=== PATIENT | female | born 1990 ===

== ENCOUNTER 2017-03-07 22:27 | Emergency (ER) | payer OTHER ==
--- NOTE | 2017-03-07 22:34 | PDOC ---
History of Present Illness - General Chief Complaint: Pain Stated Complaint: PAIN TO RT THUMB Time Seen by Provider: 03/07/17 22:28 History Source: Patient Exam Limitations: No Limitations - History of Present Illness Initial Comments: 03/07/17 22:29 27 yo healthy female had new fake nails placed monday morning and monday night she had an accident at work and avulsed the thumbnail on her right hand.... 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 Isolated injury no other complaints. Timing/Duration: other (4 days ago) Severity: moderate Modifying Factors: improves with: other (nothing) Associated Symptoms: denies: denies symptoms Past History - Past Medical History Allergies/Adverse Reactions: Allergies Allergy/AdvReac Type Severity Reaction Status Date / Time No Known Allergies Allergy Verified 03/07/17 22:28 Home Medications: Ambulatory Orders Clindamycin [Cleocin -] 300 mg PO TID #30 capsule 03/07/17 Ondansetron [Zofran *Odt*] 8 mg SL TID #15 od.tablet 03/07/17 Oxycodone HCl/Acetaminophen [Percocet 5-325 mg Tablet] 1 - 2 tab PO Q6H #20 tab MDD 6 03/07/17 Oxycodone HCl/Acetaminophen [Percocet 5-325 mg Tablet] 1 - 2 tab PO Q6H #20 tab MDD 6 03/07/17 Review of Systems - Review of Systems Able to Perform ROS?: Yes Is the patient limited Qatari proficient: No Constitutional: No: Symptoms Reported HEENTM: No: Symptoms Reported Respiratory: No: Symptoms reported Cardiac (ROS): No: Symptoms Reported ABD/GI: No: Symptoms Reported : No: Symptoms Reported Musculoskeletal: No: Symptoms Reported Integumentary: Yes: See HPI Neurological: No: Symptoms reported Psychiatric: No: Anxiety, Depression Endocrine: No: Symptoms Reported Hematologic/Lymphatic: No: Symptoms Reported All Other Systems: Reviewed and Negative *Physical Exam - Physical Exam Comments: 03/07/17 22:32 Paronechiae and hemorrage at ulnar side of right thumbnail/nailbed General Appearance: Yes: Nourished HEENT: positive: Normal ENT Inspection Neck: positive: Supple Extremity: positive: Normal Capillary Refill, Other (Right Thumbnail / nailbed paronechiae) *DC/Admit/Observation/Transfer Diagnosis at time of Disposition: Paronychia - Discharge Dispostion Condition at time of disposition: Good Admit: No - Prescriptions Prescriptions: Clindamycin [Cleocin -] 300 mg PO TID #30 capsule Oxycodone HCl/Acetaminophen [Percocet 5-325 mg Tablet] 1 - 2 tab PO Q6H #20 tab MDD 6 Oxycodone HCl/Acetaminophen [Percocet 5-325 mg Tablet] 1 - 2 tab PO Q6H #20 tab MDD 6 Ondansetron [Zofran *Odt*] 8 mg SL TID #15 od.tablet - Patient Instructions Printed Discharge Instructions: DI for Paronychia Additional Instructions: Neisha- So sorry this happened to you..... I know it hurts. Get the nail off and wear the splint for protection. Use the pain meds only if you need them and return to us if worse in any way. Take the antibiotics for a full ten days. Odin- Dr. Aldair Xie
[2017-03-07] MEDS ORDERED: ONDANSETRON *ODT* 4 MG TABLET SL ONE (22:35)
[2017-03-07] MEDS ORDERED: CLINDAMYCIN HCL 300 MG CAPSULE PO ONE (22:35)
[2017-03-07 22:40] VITALS: BP 122/80; PULSE 65; TEMP 98.1; BMI 23.3
[2017-03-07] MEDS ORDERED: CLINDAMYCIN HCL 150 MG CAPSULE (FP) ONE ×2 (22:42→22:45)
[2017-03-07] MEDS ORDERED: ONDANSETRON 4 MG TABLET PO ONE (22:42)
== END 2017-03-07 22:56 | disposition home or self-care (01) ==
LOC: EDSEX → FER 22:27
PROC: 2W3GX1Z Immobilization of Right Thumb using Splint (ICD-10-PCS; principal; 2017-03-07)
DX: L03.011 Cellulitis of right finger (principal)
CPT/HCPCS: 29130; 99281-25